=== PATIENT | male | born 2000 | race Caucasian/White ===

== ENCOUNTER 2022-02-07 15:29 | Emergency (ER) | payer BC ==
[~2022-02-07] VITALS: Ht 177.8 cm; Wt 63.6 kg
[2022-02-07 16:25] VITALS: TEMP 98.3
[2022-02-07] MEDS ORDERED: ROBAXIN 75750 MG/TAB PO (17:48)
[2022-02-07 17:59] VITALS: BP 133/85; PULSE 88
== END 2022-02-07 18:01 | disposition home or self-care (01) ==
LOC: COL.ER 15:29
DX: S16.1XXA Strain of muscle, fascia and tendon at neck level, initial encounter (principal); X58.XXXA Exposure to other specified factors, initial encounter